=== PATIENT | female | born 1990 | race Two or more races ===

== ENCOUNTER → 2024-09-06 | Outpatient (CLI) | payer MEDICAID, SELFPAY ==
--- NOTE | 2024-09-06 14:00 | XR_ITS ---
Examination: Breast ultrasound, unilateral, right complete Date and time of exam: September 06, 2024 1411 hours INDICATIONS: Palpable lump right breast near the nipple note is beginning 6 months ago, palpable lump on clinical breast examination by physician this week in the 7:00 position Technique: Real-time barnett scale ultrasonographic imaging performed right breast including all 4 quadrants as well as nipple retroareolar and axillary region. Findings: No cystic or solid mass noted Dilated ducts retroareolar IMPRESSION: BI-RADS Category 2: Benign findings Consider follow-up diagnostic mammography
== END | disposition home or self-care (01) ==
PROVIDERS: PCP Nurse Practitioner Family; Referring Provider Nurse Practitioner Family; Visit Provider Nurse Practitioner Family
DX: N64.4 Mastodynia (principal)
CPT/HCPCS: 76641

== ENCOUNTER → 2024-12-06 | Outpatient (CLI) | payer MEDICAID, SELFPAY ==
--- NOTE | 2024-12-06 08:15 | XR_ITS ---
Examination: Diagnostic digital mammography, unilateral, right Computer aided detection 3-D breast Tomosynthesis, unilateral Date and time of exam: December 06, 2024, 0748 hours INDICATIONS: Patient states lump in the right breast 6 months Technique: Nonmagnified MLO, CC views of the right breast have been obtained, reconstructed from 3-D Tomosynthesis images. R2 computer aided detection program utilized for evaluation of suspicious masses and/or abnormal calcifications. 3-D Tomosynthesis images obtained. Findings: The breast is heterogeneously dense, which may obscure small masses 7 mm nodule is confirmed at the palpable marker site retroareolar region right breast Impression: BI-RADS category 0: Incomplete: Need additional imaging evaluation 7 mm nodule is confirmed at the palpable marker site, recommend repeat right breast sonography
== END | disposition home or self-care (01) ==
PROVIDERS: PCP Nurse Practitioner Family; Referring Provider Obstetrics & Gynecology; Visit Provider Nurse Practitioner Family
DX: N63.10 Unspecified lump in the right breast, unspecified quadrant (principal); R92.8 Other abnormal and inconclusive findings on diagnostic imaging of breast
CPT/HCPCS: 77061; 77065; G0279